=== PATIENT | male | born 1965 | race Asian ===

== ENCOUNTER → 2021-08-17 | Outpatient (CLI) | payer OTHER ==
[2021-08-17 15:34] LABS: GLUCOSE,CSF 58 mg/dL (40-70); TOTAL PROTEIN,CSF 29 mg/dL (15-45)
[2021-08-17 16:04] LABS: CSF APPEARANCE CLEAR; CSF COLOR COLORLESS; CSF MONONUCLEAR 98 % (70-100); CSF POLYMORPHONUCLEAR 2 % (0-6); CSF RBC 17 /mm3 (0-0)
[2021-08-22 10:31] LABS: ALBUMIN CSF 16.8 mg/dL (<=27.0); ALBUMUN SERUM 4300 mg/dL (())
[2021-08-22 10:46] LABS: IGG,SERUM 1220 mg/dL (()); IGG/ALBUMIN SERUM 0.28 (<=0.40)
[2021-08-22 11:01] LABS: CSF IGG/ALBUMIN 0.14 (<=0.21); CSF,IGG 2.4 mg/dL (<=8.1)
[2021-08-22 14:35] LABS: CSF OLIG BD INTERPRETATION 0 bands (<2); SE OLIGOCLONAL BANDING 3 bands (())
== END ==
LOC: COL.RAD 14:12
PROVIDERS: Psychiatry & Neurology Neurology
DX: M21.371 Foot drop, right foot (principal)